=== PATIENT | male | born 1975 | race Caucasian/White ===

== ENCOUNTER → 2017-12-13 | Outpatient (CLI) | payer MEDICAID | LOC: FCPNEURO 21:30 | PROVIDERS: ATTEND Psychiatry & Neurology Sleep Medicine | DX: G47.33 Obstructive sleep apnea (adult) (pediatric) (principal); G47.34 Idiopathic sleep related nonobstructive alveolar hypoventilation; G47.39 Other sleep apnea ==

== ENCOUNTER 2018-02-20 05:48 | Emergency (ER) | payer MEDICAID ==
--- NOTE | 2018-02-20 06:15 | EDPHY ---
H & P Stated Complaint: fall from bed-LBP Time Seen by Provider: 02/20/18 06:12 HPI/ROS: HPI: The patient presents with a fall out of bed which occurred just prior to arrival. He is brought in by ambulance from [facility]. He has multiple medical problems and was getting out of bed. He slipped and fell and landed on his lumbar spine. He had acute onset of severe pain which is achy, constant, midline. He denies any numbness or tingling of his legs. He normally gets around without any assistance though is deconditioned it seems. Paramedics gave him 400 mcg of fentanyl which cause respiratory depression and sedation for which she required Narcan. REVIEW OF SYSTEMS 10 systems were reviewed and negative with the exception of the elements mentioned in the history of present illness. PMHx: CHF, obstructive sleep apnea, on 2 L of oxygen at all times TRAUMA PHYSICAL General Appearance: Alert, no distress Head: Atraumatic Eyes: Pupils equal, round, reactive Respiratory: No chest wall tenderness, no subcutaneous air, lungs clear bilaterally Cardiovascular: Regular rate and rhythm Abdomen: Abdomen is soft and non-tender, pelvis stable Skin: No lacerations, No abrasion Back: Diffuse tenderness throughout the lumbar spine, paraspinal regions bilaterally Extremities: Non-tender, full range of motion Neurological: A&Ox3, GCS=15,normal motor function with 5/5 strength in all 4 extremities, normal sensory exam Source: Patient, EMS, Old records Exam Limitations: No limitations - Personal History Current Tetanus Diphtheria and Acellular Pertussis (TDAP): Unsure - Medical/Surgical History Hx Asthma: No Hx Chronic Respiratory Disease: Yes Hx Diabetes: No Hx Cardiac Disease: Yes Hx Renal Disease: No Hx Cirrhosis: No Hx Alcoholism: No Hx HIV/AIDS: No Hx Splenectomy or Spleen Trauma: No Other PMH: CHF, CAITLIN, MDD - Social History Smoking Status: Never smoked Constitutional: Initial Vital Signs Temperature (C) 36.6 C 02/20/18 05:43 Heart Rate 72 02/20/18 05:43 Respiratory Rate 16 02/20/18 05:43 Blood Pressure 138/98 H 02/20/18 05:43 O2 Sat (%) 94 02/20/18 05:43 O2 Delivery Mode Room Air O2 (L/minute) 94 Allergies/Adverse Reactions: No Known Allergies Allergy (Verified 05/02/11 10:11) Home Medications: Medication Instructions Recorded Hydrocodone Bit/Acetaminophen 1 - 2 tab PO Q4-6PRN #15 tab 05/02/11 [Vicodin 5/500] No Medications [NO HOME 1 ea MISC 05/02/11 MEDICATIONS] Penicillin V Potassium [Pen Vk 500 mg PO TID 30 Days tab 05/02/11 500mg (*)] Medical Decision Making - Diagnostics Imaging Results: CT lumbar spine shows no acute fractures, discussed with Dr. Carroll of Radiology Imaging: Discussed imaging studies w/ ski maker Radiologist, I viewed and interpreted images myself Differential Diagnosis: This is a 42-year-old man, with CHF, CAITLIN, morbid obesity, resident of [facility] who presents with a fall out of bed just prior to arrival. He is complaining of lumbar spinal pain and has tenderness at the midline on exam. Plan for CT scan of his lumbar spine here. Patient's pain is well controlled currently. No neurologic deficits. CT scan is unremarkable for any acute pathology. Patient is likely experiencing muscle pain and spasm. He will be discharged back to [facility]. Departure - Departure Disposition: Home, Routine, Self-Care Clinical Impression: Fall from bed, initial encounter, Lumbar back pain Condition: Good Instructions: Low Back Strain (ED) Additional Instructions: Your x-rays today showed that you have no broken bones. He would likely are suffering from muscle pain. You should take ibuprofen or Tylenol as needed and use ice packs to help with this.
[2018-02-20 07:45] VITALS: BP 105/64
== END 2018-02-20 08:58 | disposition home or self-care (01) ==
LOC: EDUNIT#
DX: M54.5 Low back pain (principal); R20.2 Paresthesia of skin

== ENCOUNTER 2018-03-23 21:23 | Emergency (ER) | payer MEDICAID ==
--- NOTE | 2018-03-23 21:36 | EDPHY ---
H & P Time Seen by Provider: 03/23/18 21:27 HPI/ROS: CHIEF COMPLAINT: Right lower extremity edema HISTORY OF PRESENT ILLNESS: 42-year-old male history of CHF, chronic home oxygen dependent, lives at [facility], arrives via ambulance for evaluation of 2 weeks of right lower extremity/calf swelling, pain. Atraumatic. The patient is by and large bed bound secondary to his obesity history as well as CHF history. No chest pain. No dyspnea. No abdominal pain. No syncope or near syncope. REVIEW OF SYSTEMS: 10 systems reviewed and negative with the exception of the elements mentioned in the history of present illness PAST MEDICAL & SURGICAL HISTORY: CHF. Chronic home oxygen dependent SOCIAL HISTORY: Nonsmoker PHYSICAL EXAM (Prior to examination, patient consented to physical exam, hands were washed and my usual and customary physical exam procedures followed) 1) GENERAL: Obese, alert and oriented. Appears to be in no acute distress. 2) HEAD: Normocephalic, atraumatic 3) HEENT: Pupils equal, round, reactive to light bilaterally. Sclera anicteric. Nasopharynx, oropharynx, clear, no lesions. Moist Mucous membranes. 4) NECK: Full range of motion, no meningeal signs. 5) LUNGS: Clear auscultation bilaterally, no wheezes, no rhonchi, no retractions. 6) HEART: Regular rate and rhythm, no murmur, no heave, no gallop. 7) ABDOMEN: No guarding, no rebound, no focal tenderness, 8) MUSCULOSKELETAL: Right lower extremity: Asymmetrical right lower extremity edema. Normal color and temperature distally. DP and PT pulses are appreciable. Brisk capillary refill. Soft compartments. Dorsiflexion plantar flexion do not elicit pain. No erythema. Otherwise, Moving all extremities, no focal areas of tenderness, no obvious trauma. No peripheral edema or discoloration. 9) BACK: No CVA tenderness, no midline vertebral tenderness, no fluctuance, no step-off, no obvious trauma, no visual or palpable abnormality. 10) SKIN: No rash, no petechiae. 11) Psychiatric: Patient is oriented X 3, there is no agitation. DIFFERENTIAL DIAGNOSIS: In no particular order including but not limited to compartment syndrome, DVT, SVT, cellulitis - Medical/Surgical History Hx Asthma: No Hx Chronic Respiratory Disease: Yes Hx Diabetes: No Hx Cardiac Disease: Yes Hx Renal Disease: No Hx Cirrhosis: No Hx Alcoholism: No Hx HIV/AIDS: No Hx Splenectomy or Spleen Trauma: No Other PMH: CHF, CAITLIN, MDD - Social History Smoking Status: Never smoked Constitutional: Initial Vital Signs Temperature (C) 37.2 C 03/23/18 21:30 Heart Rate 81 03/23/18 21:30 Respiratory Rate 20 03/23/18 21:30 Blood Pressure 157/84 H 03/23/18 21:30 O2 Sat (%) 90 L 03/23/18 21:30 O2 Delivery Mode Nasal Cannula O2 (L/minute) 2 Allergies/Adverse Reactions: No Known Allergies Allergy (Verified 03/23/18 21:40) Home Medications: Medication Instructions Recorded Hydrocodone Bit/Acetaminophen 1 - 2 tab PO Q4-6PRN #15 tab 05/02/11 [Vicodin 5/500] No Medications [NO HOME 1 ea MISC 05/02/11 MEDICATIONS] Penicillin V Potassium [Pen Vk 500 mg PO TID 30 Days tab 05/02/11 500mg (*)] Diazepam [Valium 5 MG (*)] 5 mg PO TID PRN #15 tab 02/20/18 Diazepam [Valium 5 MG (*)] 5 mg PO TID PRN #15 tab 02/20/18 Ibuprofen 600 mg PO Q6H #30 tablet 02/20/18 Medical Decision Making - Diagnostics Imaging Results: Imaging Impressions Extremity Venous Study 03/23/18 21:32 Impression: There is no sonographic evidence of deep or superficial vein thrombosis in the right lower extremity. Findings were discussed with Joleen Weaver PA-C at 22:18, on 03/23/2018. Images by myself ED Course/Re-evaluation: 10:38 p.m.: Re-evaluation with serial exams. Discussed his imaging results showing no DVT. He has soft compartments. Doubt arterial occlusion . no evidence of ischemic limb. No chest pain , no dyspnea. Doubt acute CHF exacerbation. Addition he has normal coloration no evidence of cellulitis, doubt cellulitis, doubt necrotizing fasciitis. Patient was also seen and examined by Dr Alicia in the ER. I specifically wrote down on the patient' s discharge instructions that nursing staff need to check patient every few hours and if the patient develops erythema to the leg, develops a fever, or any other symptoms needs to seek immediate medical attention. Departure - Departure Disposition: Home, Routine, Self-Care Clinical Impression: Right leg swelling Condition: Good Instructions: Leg Edema (ED) Additional Instructions: You need to have your legs rechecked every 6 hours. If you develop redness, firmness, fever, or any other symptoms that concern you. Referrals: Mary Rivera, [Doctor of Osteopathy] - As per Instructions
[2018-03-24 00:49] VITALS: BP 132/52
== END 2018-03-24 00:30 | disposition home or self-care (01) ==
LOC: EDUNIT#
DX: M79.89 Other specified soft tissue disorders (principal); I50.9 Heart failure, unspecified; Z99.81 Dependence on supplemental oxygen

== ENCOUNTER 2018-09-02 15:55 | Emergency (ER) | payer MEDICAID | END 2018-09-02 17:50 | disposition home or self-care (01) ==